=== PATIENT | male | born 1995 | race American Indian/Alaskan Native ===

== ENCOUNTER 2020-07-16 14:27 | Emergency (ER) | payer SELFPAY ==
[2020-07-16 15:31] LABS: Basophils % (Auto) 0.2 % (0.0-1.8); Eosinophils % (Auto) 0.2 % (0.0-4.3); Hematocrit 42.9 % (35.5-45.6); Hemoglobin 14.2 gm/dl (11.8-15.2); Lymphocytes % (Auto) 12.8 % (13.4-35.0); Mean Corpuscular HGB Conc 33 % (32-34); Mean Corpuscular Volume 83 fl (84-94); Monocytes # (Auto) 0.5 K/mm3 (0.0-0.8); Monocytes % (Auto) 5.6 % (0.0-7.3); Platelet Count 270 K/mm3 (140-440); Red Blood Count 5.16 M/mm3 (3.65-5.03)
[2020-07-16 15:50] LABS: BUN/Creatinine Ratio 8; Blood Urea Nitrogen 9 mg/dL (9-20); Calcium 9.2 mg/dL (8.4-10.2); Hemolysis Index 7
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
[2020-07-16 19:03] LABS: Bilirubin,Urine NEG (Negative); Blood,Urine NEG (Negative); Color,Urine Yellow (Yellow); Mucus,Urine 1+ /HPF; Urobilinogen,Urine < 2.0 mg/dL (<2.0)
[2020-07-16 19:14] LABS: Amphetamine Screen,Urine PRESUMPTIVE NEGATIVE; Benzodiazepines Screen,Urine PRESUMPTIVE NEGATIVE; Cannabinoid Screen,Urine PRESUMPTIVE POSITIVE; Cocaine Screen,Urine PRESUMPTIVE NEGATIVE; Methadone Screen,Urine PRESUMPTIVE NEGATIVE; Opiate Screen,Urine PRESUMPTIVE NEGATIVE
[2020-07-17 07:38] VITALS: BP 122/94
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
== END 2020-07-17 13:20 | disposition home or self-care (01) ==
LOC: ED 14:27 → EEVIPCON 14:27 → ED 07-17 13:20
DX: F12.20 Cannabis dependence, uncomplicated (principal); F24 Shared psychotic disorder
CPT/HCPCS: 36415; 80048; 80307; 80320; 81001; 85025; G0480

== ENCOUNTER 2021-07-31 16:05 | Emergency (ER) | payer SELFPAY ==
[2021-07-31] MEDS ORDERED: charcoal activated SOLUTION 25 GM/120 ML PO ONE (16:29)
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
[2021-07-31 16:47] LABS: Basophils % (Auto) 0.4 % (0.0-1.8); Eosinophils # (Auto) 0.2 K/mm3 (0.0-0.4); Eosinophils % (Auto) 2.1 % (0.0-4.3); Hematocrit 46.6 % (35.5-45.6); Hemoglobin 15.6 gm/dl (11.8-15.2); Lymphocytes # (Auto) 1.6 K/mm3 (1.2-5.4); Lymphocytes % (Auto) 22.4 % (13.4-35.0); Mean Corpuscular HGB Conc 34 % (32-34); Mean Corpuscular Volume 84 fl (84-94); Monocytes # (Auto) 0.5 K/mm3 (0.0-0.8); Monocytes % (Auto) 7.7 % (0.0-7.3); Platelet Count 267 K/mm3 (140-440); Red Blood Count 5.56 M/mm3 (3.65-5.03); Red Cell Distribution Width 13.6 % (13.2-15.2)
[2021-07-31] MEDS ORDERED: SODIUM CHLORIDE 0.9% 1000 ML 1,000 ML IV ONE (16:50)
[2021-07-31] MEDS ORDERED: ONDANSETRON 4 MG/2 ML INJ IV ONE (16:50)
[2021-07-31 17:10] LABS: Alanine Aminotransferase 23 units/L (7-56); Albumin 4.8 g/dL (3.9-5); BUN/Creatinine Ratio 7; Blood Urea Nitrogen 9 mg/dL (9-20); Hemolysis Index 10
[2021-07-31 17:32] LABS: INR 0.94 (0.87-1.13)
[2021-07-31 17:33] LABS: Partial Thromboplastin Time 23.4 Sec. (24.2-36.6)
[2021-08-01] MEDS ORDERED: IBUPROFEN 800 MG TAB PO ONE (01:53)
[2021-08-01] MEDS ORDERED: ONDANSETRON 4 MG ODT TAB PO PRN (10:56)
[2021-08-01] MEDS ORDERED: diphenhydrAMINE 25 MG CAP PO PRN (10:56)
[2021-08-01] MEDS ORDERED: LORazepam 2 MG/ML VIAL IM PRN (10:56)
--- NOTE | 2021-08-01 10:56 | Event Note ---
Date: 08/01/21 The patient was evaluated in the emergency department for symptoms described in the history of present illness. He/she was evaluated in the context of the global COVID-19 pandemic, which necessitated consideration that the patient might be at risk for infection with the virus that causes COVID-19. Institutional protocols and algorithms that pertain to the evaluation of patients at risk for COVID-19 are in a state of rapid change based on information released by regulatory bodies including the CDC and federal and state organizations. These policies and algorithms were followed during the patient's care in the emergency department. Please note that these policies, procedures and recommendations changed on a rapid basis. Laboratory studies, vital signs, nursing documentation, ER documentation, and psychiatric documentation are reviewed and appreciated. Nursing team reports no acute events this morning or concerns. The patient is awake and ambulating and does not appear to be in any acute distress. The patient was deemed medically suitable for psychiatric disposition and placement during his initial ER evaluation. The patient continues to remain medically suitable for psychiatric placement and disposition. He is currently pending psychiatric placement. He is resting comfortably in his stretcher, and he does not appear to be in any acute distress. Coronavirus swab is pending at this time to facilitate placement. Lab Results 07/31/21 07/31/21 07/31/21 Range/Units 16:34 16:34 16:34 WBC 7.2 (4.5-11.0) K/mm3 RBC 5.56 H (3.65-5.03) M/mm3 Hgb 15.6 H (11.8-15.2) gm/dl Hct 46.6 H (35.5-45.6) % MCV 84 (84-94) fl MCH 28 (28-32) pg MCHC 34 (32-34) % RDW 13.6 (13.2-15.2) % Plt Count 267 (140-440) K/mm3 Lymph % (Auto) 22.4 (13.4-35.0) % Dade % (Auto) 7.7 H (0.0-7.3) % Eos % (Auto) 2.1 (0.0-4.3) % Baso % (Auto) 0.4 (0.0-1.8) % Lymph # (Auto) 1.6 (1.2-5.4) K/mm3 Dade # (Auto) 0.5 (0.0-0.8) K/mm3 Eos # (Auto) 0.2 (0.0-0.4) K/mm3 Baso # (Auto) 0.0 (0.0-0.1) K/mm3 Seg Neutrophils % 67.4 (40.0-70.0) % Seg Neutrophils # 4.8 (1.8-7.7) K/mm3 PT (12.2-14.9) Sec. INR (0.87-1.13) APTT (24.2-36.6) Sec. Sodium 141 (137-145) mmol/L Potassium 3.8 (3.6-5.0) mmol/L Chloride 102.4 (98-107) mmol/L Carbon Dioxide 26 (22-30) mmol/L Anion Gap 16 mmol/L BUN 9 (9-20) mg/dL Creatinine 1.3 (0.8-1.3) mg/dL Estimated GFR > 60 ml/min BUN/Creatinine Ratio 7 % Glucose 82 (75-100) mg/dL Calcium 10.0 (8.4-10.2) mg/dL Total Bilirubin 0.30 (0.1-1.2) mg/dL AST 12 (5-40) units/L ALT 23 (7-56) units/L Alkaline Phosphatase 83 (35-129) units/L Total Protein 8.3 H (6.3-8.2) g/dL Albumin 4.8 (3.9-5) g/dL Albumin/Globulin Ratio 1.4 % Salicylates < 0.3 L (2.8-20.0) mg/dL Acetaminophen (10.0-30.0) ug/mL Plasma/Serum Alcohol (0-0.07) % 07/31/21 07/31/21 07/31/21 Range/Units 16:34 16:34 17:08 WBC (4.5-11.0) K/mm3 RBC (3.65-5.03) M/mm3 Hgb (11.8-15.2) gm/dl Hct (35.5-45.6) % MCV (84-94) fl MCH (28-32) pg MCHC (32-34) % RDW (13.2-15.2) % Plt Count (140-440) K/mm3 Lymph % (Auto) (13.4-35.0) % Dade % (Auto) (0.0-7.3) % Eos % (Auto) (0.0-4.3) % Baso % (Auto) (0.0-1.8) % Lymph # (Auto) (1.2-5.4) K/mm3 Dade # (Auto) (0.0-0.8) K/mm3 Eos # (Auto) (0.0-0.4) K/mm3 Baso # (Auto) (0.0-0.1) K/mm3 Seg Neutrophils % (40.0-70.0) % Seg Neutrophils # (1.8-7.7) K/mm3 PT 13.6 (12.2-14.9) Sec. INR 0.94 (0.87-1.13) APTT 23.4 L (24.2-36.6) Sec. Sodium (137-145) mmol/L Potassium (3.6-5.0) mmol/L Chloride (98-107) mmol/L Carbon Dioxide (22-30) mmol/L Anion Gap mmol/L BUN (9-20) mg/dL Creatinine (0.8-1.3) mg/dL Estimated GFR ml/min BUN/Creatinine Ratio % Glucose (75-100) mg/dL Calcium (8.4-10.2) mg/dL Total Bilirubin (0.1-1.2) mg/dL AST (5-40) units/L ALT (7-56) units/L Alkaline Phosphatase (35-129) units/L Total Protein (6.3-8.2) g/dL Albumin (3.9-5) g/dL Albumin/Globulin Ratio % Salicylates (2.8-20.0) mg/dL Acetaminophen 5.0 L (10.0-30.0) ug/mL Plasma/Serum Alcohol < 0.01 (0-0.07) % 07/31/21 07/31/21 Range/Units 20:12 20:12 WBC (4.5-11.0) K/mm3 RBC (3.65-5.03) M/mm3 Hgb (11.8-15.2) gm/dl Hct (35.5-45.6) % MCV (84-94) fl MCH (28-32) pg MCHC (32-34) % RDW (13.2-15.2) % Plt Count (140-440) K/mm3 Lymph % (Auto) (13.4-35.0) % Dade % (Auto) (0.0-7.3) % Eos % (Auto) (0.0-4.3) % Baso % (Auto) (0.0-1.8) % Lymph # (Auto) (1.2-5.4) K/mm3 Dade # (Auto) (0.0-0.8) K/mm3 Eos # (Auto) (0.0-0.4) K/mm3 Baso # (Auto) (0.0-0.1) K/mm3 Seg Neutrophils % (40.0-70.0) % Seg Neutrophils # (1.8-7.7) K/mm3 PT (12.2-14.9) Sec. INR (0.87-1.13) APTT (24.2-36.6) Sec. Sodium (137-145) mmol/L Potassium (3.6-5.0) mmol/L Chloride (98-107) mmol/L Carbon Dioxide (22-30) mmol/L Anion Gap mmol/L BUN (9-20) mg/dL Creatinine (0.8-1.3) mg/dL Estimated GFR ml/min BUN/Creatinine Ratio % Glucose (75-100) mg/dL Calcium (8.4-10.2) mg/dL Total Bilirubin (0.1-1.2) mg/dL AST (5-40) units/L ALT (7-56) units/L Alkaline Phosphatase (35-129) units/L Total Protein (6.3-8.2) g/dL Albumin (3.9-5) g/dL Albumin/Globulin Ratio % Salicylates < 0.3 L (2.8-20.0) mg/dL Acetaminophen 7.8 L (10.0-30.0) ug/mL Plasma/Serum Alcohol (0-0.07) % Vital Signs 07/31/21 07/31/21 07/31/21 16:05 16:24 17:24 Temperature 98.4 F 98.3 F Pulse Rate 107 H 113 H 108 H Respiratory 14 14 14 Rate Blood Pressure 132/81 Blood Pressure 118/87 132/81 [Right] O2 Sat by Pulse 100 100 100 Oximetry 07/31/21 07/31/21 07/31/21 17:30 17:45 18:15 Temperature Pulse Rate 112 H 120 H 119 H Respiratory 12 14 18 Rate Blood Pressure 122/83 132/84 Blood Pressure [Right] O2 Sat by Pulse 100 99 99 Oximetry 07/31/21 07/31/21 07/31/21 18:31 18:45 19:01 Temperature Pulse Rate 111 H 109 H 127 H Respiratory 20 20 20 Rate Blood Pressure 132/84 132/84 117/77 Blood Pressure [Right] O2 Sat by Pulse 99 99 99 Oximetry 07/31/21 07/31/21 07/31/21 19:15 19:31 19:45 Temperature Pulse Rate 128 H 129 H 132 H Respiratory 15 18 12 Rate Blood Pressure 117/77 111/71 111/71 Blood Pressure [Right] O2 Sat by Pulse 97 100 100 Oximetry 07/31/21 07/31/21 07/31/21 20:01 20:15 20:31 Temperature Pulse Rate 134 H 129 H 142 H Respiratory 16 21 17 Rate Blood Pressure 121/77 121/77 112/76 Blood Pressure [Right] O2 Sat by Pulse 100 100 100 Oximetry 07/31/21 07/31/21 07/31/21 20:45 21:01 21:15 Temperature Pulse Rate 128 H 115 H 87 Respiratory 17 13 16 Rate Blood Pressure 112/76 55/30 55/30 Blood Pressure [Right] O2 Sat by Pulse 100 100 100 Oximetry 07/31/21 07/31/21 07/31/21 21:31 21:45 22:01 Temperature Pulse Rate 82 64 63 Respiratory 20 11 L 11 L Rate Blood Pressure 115/80 115/80 124/71 Blood Pressure [Right] O2 Sat by Pulse 100 99 89 Oximetry 07/31/21 08/01/21 22:15 08:13 Temperature 97.9 F Pulse Rate 67 62 Respiratory 13 18 Rate Blood Pressure 124/71 Blood Pressure 126/81 [Right] O2 Sat by Pulse 99 98 Oximetry
--- NOTE | 2021-08-01 11:09 | Consultation ---
History of Present Illness - Reason for Consult Consult date: 08/01/21 Reason for consult: suicidal attempt - History of Present Psychiatric Illness Per ED Note: The patient is a 26-year-old male present with a chief complaint of suicidal ideation and overdose. The patient states approximate 1 hour ago he took a "bunch of blood thinners" and 5 Tylenol PM. Patient states he also used a knife to attempt to cut his left wrist. Patient currently denies having any complaints. The patient states the blood thinners he believes belonged to his mother. Huber Zarco is 26 year old male with history of ADHD. In my interview with the patient, he is angry towards his mother using profanity. The patient states he attempted suicide via overdosing on 5 Tylenol pills and unknown amount of blood thinner. He reports stressor such as " living with my mom, I want to get my stuff out of there." The patient denies any current suicidal/homicidal ideation and denies hallucinations. PAST PSYCHIATRIC HISTORY Diagnoses: ADHD Suicide attempts or Self-harm behavior: Yes- cutting Prior psychiatric hospitalizations: Yes Substance Abuse history: marijuana Previous psychiatric medications tried: Denies Outpatient treatment: Denied SOCIAL HISTORY Marital Status: Single Living Arrangements: Lives with mother Employment Status: unemployed Access to guns/weapons: Denied Education: unknown History of Abuse: Denied Legal History: None reported REVIEW OF SYSTEMS Constitutional: Negative for weight loss ENT: Negative for stridor Respiratory: Negative for cough or hemoptysis All other systems reviewed and are negative MENTAL STATUS EXAMINATION General Appearance and Behavior: Age appropriate, dressed appropriately, calm and uncooperative Cooperation: guarded Psychomotor Behavior: psychomotor normal Mood: angry Affect and affective range: congruent with stated mood Thought Process: goal oriented Thought Content: Not suicidal Speech: Normal volume, Regular rate and rhythm, Intellectual Functioning: Average Suicidal Ideation:Not suicidal Homicidal Ideation: denies Hallucinations: Denies Delusions: None elicited Impulse Control: Unimpaired Insight and Judgment: limited insight and judgment, Memory: Normal Attention: divided Orientation: Alert, oriented Assessment and Plan (1) Major depressive disorder (2) Treatment plan Continue 1013 Start Zoloft 25mg po daily Start Vistaril 25mg po BID Risks, benefits and alternatives of medications discussed with the patient, questions answered and consent obtained from patient. PSYCHOTHERAPY: Supportive psychotherapy provided MEDICAL: Per primary team DELIRIUM PRECAUTIONS: Please re-orient patient frequently, keep lights on during the day, and minimize benzodiazepines and opiates as these medications could worsen patient's confusion. KILN PULLER: Per medical team DISPOSITION: Recommend acute inpatient psychiatric hospitalization. Will follow. Thank you for the consult. Please contact with any questions and/or concerns. Case staffed with Dr. Hooker Medications and Allergies Allergies Allergy/AdvReac Type Severity Reaction Status Date / Time No Known Allergies Allergy Unverified 07/16/20 14:42 Home Medications Medication Instructions Recorded Confirmed Last Taken Type No Known Home Medications [No 07/31/21 07/31/21 Unknown History Reported Home Medications] Active Meds: Active Medications Diphenhydramine HCl (Diphenhydramine 25 Mg Cap) 50 mg PO QHS PRN PRN Reason: Insomnia Lorazepam (Lorazepam 2 Mg/Ml Vial) 2 mg IM Q4HR PRN PRN Reason: Agitation Ondansetron HCl (Ondansetron 4 Mg Odt Tab) 4 mg PO Q6HR PRN PRN Reason: Nausea Mental Status Exam - Vital signs Last Vital Signs Temp 97.9 F 08/01/21 08:13 Pulse 62 08/01/21 08:13 Resp 18 08/01/21 08:13 BP 126/81 08/01/21 08:13 Pulse Ox 98 08/01/21 08:13 Results Result Diagrams: 07/31/21 16:34 07/31/21 16:34 Abnormal lab results 07/31/21 07/31/21 07/31/21 Range/Units 16:34 16:34 16:34 RBC 5.56 H (3.65-5.03) M/mm3 Hgb 15.6 H (11.8-15.2) gm/dl Hct 46.6 H (35.5-45.6) % [place] % (Auto) 7.7 H (0.0-7.3) % APTT (24.2-36.6) Sec. Total Protein 8.3 H (6.3-8.2) g/dL Salicylates < 0.3 L (2.8-20.0) mg/dL Acetaminophen (10.0-30.0) ug/mL 07/31/21 07/31/21 07/31/21 Range/Units 16:34 17:08 20:12 RBC (3.65-5.03) M/mm3 Hgb (11.8-15.2) gm/dl Hct (35.5-45.6) % [place] % (Auto) (0.0-7.3) % APTT 23.4 L (24.2-36.6) Sec. Total Protein (6.3-8.2) g/dL Salicylates < 0.3 L (2.8-20.0) mg/dL Acetaminophen 5.0 L (10.0-30.0) ug/mL 07/31/21 Range/Units 20:12 RBC (3.65-5.03) M/mm3 Hgb (11.8-15.2) gm/dl Hct (35.5-45.6) % [place] % (Auto) (0.0-7.3) % APTT (24.2-36.6) Sec. Total Protein (6.3-8.2) g/dL Salicylates (2.8-20.0) mg/dL Acetaminophen 7.8 L (10.0-30.0) ug/mL All other labs normal.
[2021-08-01 13:07] LABS: Bilirubin,Urine NEG (Negative); Blood,Urine NEG (Negative); Color,Urine Yellow (Yellow); Mucus,Urine FEW /HPF; Protein,Urine <15 mg/dL mg/dL (Negative); Urobilinogen,Urine < 2.0 mg/dL (<2.0)
[2021-08-01 13:15] LABS: Amphetamine Screen,Urine Negative; Benzodiazepines Screen,Urine Negative; Cocaine Screen,Urine Negative; Methadone Screen,Urine Negative; Opiate Screen,Urine Negative
[2021-08-01 13:30] LABS: Cannabinoid Screen,Urine Positive
[2021-08-01] MEDS: hydrOXYzine PAMOATE 25 MG CAP PO SCH ×2 (17:13→22:34)
[2021-08-01] MEDS: SERTRALINE 25 MG TAB PO SCH (17:14)
[2021-08-02 09:48] VITALS: BP 109/55
[2021-08-02] MEDS: SERTRALINE 25 MG TAB PO SCH (10:10)
[2021-08-02] MEDS: hydrOXYzine PAMOATE 25 MG CAP PO SCH (10:10)
--- NOTE | 2021-08-02 10:34 | Event Note ---
Date: 08/02/21 Patient is 26 years old male presented to the ER with suicidal ideation and overdose. No overnight issues. Vital signs stable. Labs reviewed and is unremarkable. patient has been accepted to an inpatient psychiatric facility waiting for transportation.
--- NOTE | 2021-08-04 10:14 | Electrocardiograph Report ---
[facility] Test Date: 2021-07-31 Test Time: 22:42:00 Pat Name: JOHN NATH Department: Room: Gender: M [employer] Guide: ABIEL : 1995 Requested By: TONO BANUELOS Order Number: [id number] Reading MD: Annie Garcia Measurements Intervals Portis Rate: 72 P: 67 CO: 140 QRS: 58 QRSD: 84 T: 56 QT: 495 QTc: 543 Interpretive Statements Sinus arrhythmia Poor R wave progression Prolonged QT interval No previous ECG available for comparison Electronically Signed On 08-04-2021 10:14:26 EDT by Annie Garcia
== END 2021-08-02 13:29 ==
LOC: EEVIPCON 16:05 → ED 16:05
DX: T39.1X2A Poisoning by 4-Aminophenol derivatives, intentional self-harm, initial encounter (principal); F12.90 Cannabis use, unspecified, uncomplicated; Z20.822 Contact with and (suspected) exposure to COVID-19; Z72.89 Other problems related to lifestyle; R79.1 Abnormal coagulation profile; Z79.899 Other long term (current) drug therapy; Y92.89 Other specified places as the place of occurrence of the external cause
CPT/HCPCS: 36415; 80053; 80307; 81001; 85025; 85610; 85730; 93005; 99285; J2405; J7030; Q0177; U0003; 80320; G0480